=== PATIENT | male | born 1940 | race Caucasian/White ===

== ENCOUNTER 2022-07-11 08:00 | Outpatient (CLI) | payer BC ==
[2022-07-11 18:49] LABS: BILIRUBIN,URINE NEGATIVE (NEGATIVE); GLUCOSE, URINE (UA) NEGATIVE (NEGATIVE); KETONES,URINE (UA) NEGATIVE (NEGATIVE); LEUKOCYTE ESTERASE, URINE LARGE (NEGATIVE); NITRITE,URINE POSITIVE (NEGATIVE); OCCULT BLOOD,URINE SMALL (NEGATIVE); PROTEIN,URINE TRACE mg/dL (NEGATIVE); UROBILINOGEN,URINE 0.2 (NORMAL) E.U./dL (NORMAL)
[2022-07-11 18:52] LABS: CLARITY,URINE CLOUDY (CLEAR)
[2022-07-11 18:56] LABS: BACTERIA,URINE Few /HPF (None Seen); SQUAMOUS EPITHELIAL CELL,UR NONE SEEN (<= Few); WBC,URINE >25 /HPF (0-3)
== END 2022-07-11 08:01 | disposition home or self-care (01) ==
LOC: LAB.N 08:00
PROVIDERS: ATTEND Physician Assistant
DX: R35.0 Frequency of micturition (principal); R30.0 Dysuria
CPT/HCPCS: 81001; 87086

== ENCOUNTER 2023-07-24 21:55 | Outpatient (CLI) | payer BC, MEDICARE | END 2023-07-24 23:59 | disposition critical access hospital (66) | LOC: EMS 21:55 | DX: M25.522 Pain in left elbow (principal); W18.30XA Fall on same level, unspecified, initial encounter; Y93.01 Activity, walking, marching and hiking; Y92.039 Unspecified place in apartment as the place of occurrence of the external cause | CPT/HCPCS: A0425; A0429 ==

== ENCOUNTER 2023-07-24 22:02 | Emergency (ER) | payer BC, MEDICARE ==
[2023-07-24 22:18] VITALS: O2SAT 96
--- NOTE | 2023-07-24 22:18 | ED Physician Documentation ---
History of Present Illness - Stated complaint Stated Complaint: GLF - History obtained from History obtained from: Patient - Additonal information Additional information: 83yM with pmh htn, hld, p/w episode of lightheadedness tonight when he got up from his recliner to go to bed. patient was walking along in the wallway then fell, hitting his left elbow. denies HT or LOC. patient states he had two martinis tonight. denies MJ or other drug use. denies cp , n/v/d vision changes adams, fever fnd. Review of Systems Constitutional: denies: Fever, Chills Eyes: denies: Loss of vision Nose: denies: Rhinorrhea / runny nose Throat: denies: Sore throat Cardiac: denies: Chest pain / pressure, Palpitations Respiratory: denies: Dyspnea, Cough GI: denies: Abdominal Pain, Nausea, Vomiting, Diarrhea Musculoskeletal: denies: Back pain Neurologic: reports: Other (lightheadedness). denies: Syncope, Confused, Headache, Head injury, LOC PD PAST MEDICAL HISTORY - Allergies Allergies/Adverse Reactions: Allergies Allergy/AdvReac Type Severity Reaction Status Date / Time codeine Allergy Dizziness Verified 07/24/23 22:13 PD ED PE NORMAL - Vitals Vital signs reviewed: Yes - General General: Alert and oriented X 3, No acute distress, Well developed/nourished - HEENT HEENT: Atraumatic, PERRL, EOMI, Moist mucous membranes, Pharynx benign - Neck Neck: Supple, no meningeal sign - Cardiac Cardiac: RRR - Respiratory Respiratory: No respiratory distress, Clear bilaterally - Abdomen Abdomen: Non tender, Non distended - Back Back: No CVA TTP - Derm Derm: Normal color, Warm and dry - Neuro Neuro: Alert and oriented X 3, 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, No motor deficit, No sensory deficit, Normal speech Eye Opening: Spontaneous Motor: Obeys Commands Verbal: Oriented GCS Score: 15 - Psych Psych: Normal mood, Normal affect Results - Vitals Vitals: Vital Signs - 24 hr 07/24/23 07/24/23 22:10 22:25 Temperature 36.8 C Heart Rate 78 Heart Rate [ 75 Sitting] Heart Rate [ 79 Standing] Heart Rate [ 75 Supine] Respiratory 16 Rate Blood Pressure 107/64 Blood Pressure 109/67 [Sitting] Blood Pressure 102/62 [Standing] Blood Pressure 107/64 [Supine] O2 Saturation 96 Oxygen O2 Source Room air - EKG (time done) 7 EKG releavant findings:: EKG personally interpreted by author of this note. Relevant findings are: Rate: Rate (enter#) (81) Rhythm: Other (accelerated junctional rhythm) [place]: Normal Intervals: Normal [place], Other (QT/QTc 484/563) QRS: Normal Ischemia: Normal ST segments - Labs Labs: Laboratory Tests 07/24/23 07/24/23 07/24/23 22:35 22:35 22:35 WBC 5.0 RBC 3.37 L Hgb 12.5 L Hct 37.6 L MCV 111.6 H MCH 37.1 H MCHC 33.2 RDW 13.5 Plt Count 180 MPV 11.2 Manual Slide Review Indicated Sodium 136 Potassium 3.2 L Chloride 96 L Carbon Dioxide 25 Anion Gap 15.0 H BUN 31 H Creatinine 1.8 H Estimated GFR (MDRD) 36 L Glucose 143 H Calcium 10.1 Total Bilirubin 0.3 AST 15 ALT 14 Alkaline Phosphatase 49 Troponin I High Sens 8.1 Total Protein 7.4 Albumin 4.1 Globulin 3.3 Albumin/Globulin Ratio 1.2 Lipase 66 Ethyl Alcohol 127.8 PD Medical Decision Making - ED course ED course: 83yM presents to the ED s/p dizzy episode causing him to stagger to the ground, hitting L elbow. appears to have no injury to elbow. EKG shows junctional rhythm at normal rate of 81. Labwork including cbc, abdominal panel, etoh was ordered. CXR noncontributory. Orthostatic vital signs within normal limits. Cardiac monitoring in the ED uncovered no additional arrhythmia. Labwork showed mild hypokalemia with potassium 3.2 which was orally repleted. cre 1.8 without prior comparison. d/w patient who will f/u with pcp. 500cc ivf provided. Plan to f/u outpatient with patient's pcp. He may benefit from holter monitoring and/or echocardiogram as an outpatient. return precautions given. Departure - Departure Clinical Impression: Dizziness, Hypokalemia, DOMINIQUE (acute kidney injury) Condition: Stable Comments: You were seen in the emergency department for dizziness. You have some kidney injury on labwork (creatinine 1.8) and should follow up with your primary care provider for recheck. Your potassium was on the low end of normal as well and a supplement was provided. Please follow-up with your primary care provider for evaluation for need for echocardiogram and/or holter monitoring, and return to the emergency department if you have any new or worsening symptoms or other concerns.
[2023-07-24 22:47] LABS: BASOPHILS % (AUTO) 0.8 %; EOSINOPHILS # (AUTO) 0.2 10^3/uL (0.0-0.7); EOSINOPHILS % (AUTO) 4.4 %; HCT - HEMATOCRIT 37.6 % (42.0-52.0); HGB - HEMOGLOBIN 12.5 g/dL (14.0-18.0); LYMPHOCYTES # (AUTO) 1.4 10^3/uL (1.5-3.5); LYMPHOCYTES % (AUTO) 28.1 %; MEAN CORPUSCULAR HEMOGLOBIN 37.1 pg (27.0-31.0); MEAN CORPUSCULAR HGB CONC 33.2 g/dL (32.0-36.0); MEAN CORPUSCULAR VOLUME 111.6 fL (80.0-94.0); MEAN PLATELET VOLUME 11.2 fL (7.4-11.4); MONOCYTES # (AUTO) 0.8 10^3/uL (0.0-1.0); MONOCYTES % (AUTO) 15.2 %; NEUTROPHILS # (AUTO) 2.5 10^3/uL (1.5-6.6); NEUTROPHILS % (AUTO) 50.5 %; PLT - PLATELET COUNT 180 10^3/uL (130-450); RED BLOOD COUNT 3.37 10^6/uL (4.70-6.10); RED CELL DISTRIBUTION WIDTH 13.5 % (12.0-15.0)
[2023-07-24 23:07] LABS: SLIDE REVIEW? Indicated
[2023-07-24 23:12] LABS: ALBUMIN 4.1 g/dL (3.2-5.5); ALBUMIN/GLOBULIN RATIO 1.2 (1.0-2.2); BILIRUBIN,TOTAL 0.3 mg/dL (0.2-1.0); CALCIUM 10.1 mg/dL (8.5-10.3); CREATININE 1.8 mg/dL (0.6-1.3); POTASSIUM 3.2 mmol/L (3.5-4.5); TOTAL PROTEIN 7.4 g/dL (6.4-8.9)
--- NOTE | 2023-07-24 23:13 | XRAY Report ---
PROCEDURE: Chest 1V INDICATIONS: Chest Pain TECHNIQUE: One view of the chest was acquired. COMPARISON: None. FINDINGS: Surgical changes and devices: None. Lungs and pleura: No pleural effusions or pneumothorax. Lungs are clear. Mediastinum: Mediastinal contours appear normal. Heart size is normal. Bones and chest wall: No suspicious bony lesions. Overlying soft tissues appear unremarkable. IMPRESSION: No acute cardiopulmonary process. Reviewed by: Diane Castellano MD on 07/24/2023 11:12 PM PST Approved by: Diane Castellano MD on 07/24/2023 11:12 PM PST Station ID: [id number]
[2023-07-24] MEDS ORDERED: POTASSIUM CHLORIDE 20 MEQ/15 ML UDC PO STA (23:15)
[2023-07-24 23:16] LABS: TROPONIN I HIGH SENSITIVITY 8.1 ng/L (2.3-19.7)
[2023-07-24] MEDS ORDERED: SODIUM CHLORIDE 0.9% 500 ML IV STA (23:16)
[2023-07-24 23:34] LABS: PLATELET ESTIMATE, MANUAL NORMAL (130-450,000) (NORMAL)
[2023-07-25 01:09] VITALS: BP 111/72
== END 2023-07-25 00:49 | disposition home or self-care (01) ==
LOC: EDUNIT# → ED 22:02
DX: R42 Dizziness and giddiness (principal); N17.9 Acute kidney failure, unspecified; E87.6 Hypokalemia
CPT/HCPCS: 36415; 71045; 80053; 80320; 83690; 84484; 85025; 93005; 99284; A9270

== ENCOUNTER 2023-08-02 12:10 | Outpatient (CLI) | payer BC, MEDICARE ==
[2023-08-02 12:24] LABS: BASOPHILS # (AUTO) 0.1 10^3/uL (0.0-0.1); BASOPHILS % (AUTO) 1.3 %; EOSINOPHILS # (AUTO) 0.2 10^3/uL (0.0-0.7); EOSINOPHILS % (AUTO) 3.1 %; HCT - HEMATOCRIT 41.2 % (42.0-52.0); HGB - HEMOGLOBIN 13.3 g/dL (14.0-18.0); LYMPHOCYTES # (AUTO) 1.3 10^3/uL (1.5-3.5); LYMPHOCYTES % (AUTO) 23.8 %; MEAN CORPUSCULAR HEMOGLOBIN 36.3 pg (27.0-31.0); MEAN CORPUSCULAR HGB CONC 32.3 g/dL (32.0-36.0); MEAN CORPUSCULAR VOLUME 112.6 fL (80.0-94.0); MEAN PLATELET VOLUME 10.8 fL (7.4-11.4); MONOCYTES # (AUTO) 1.1 10^3/uL (0.0-1.0); MONOCYTES % (AUTO) 20.7 %; NEUTROPHILS # (AUTO) 2.8 10^3/uL (1.5-6.6); NEUTROPHILS % (AUTO) 50.2 %; PLT - PLATELET COUNT 182 10^3/uL (130-450); RED BLOOD COUNT 3.66 10^6/uL (4.70-6.10); RED CELL DISTRIBUTION WIDTH 13.8 % (12.0-15.0); WHITE BLOOD COUNT 5.5 x10^3/uL (4.8-10.8)
[2023-08-02 12:29] LABS: SLIDE REVIEW? Indicated
[2023-08-02 12:52] LABS: CALCIUM 9.3 mg/dL (8.5-10.3); CREATININE 1.6 mg/dL (0.6-1.3); POTASSIUM 4.9 mmol/L (3.5-4.5)
[2023-08-02 12:54] LABS: PLATELET ESTIMATE, MANUAL NORMAL (130-450,000) (NORMAL); PLATELET MORPHOLOGY NORMAL APPEARANCE (NORMAL); RBC MORPHOLOGY (MULTIPLE) 2+ MACROCYTOSIS (NORMAL)
[2023-08-02 14:19] LABS: FERRITIN 226.7 ng/mL (23.9-336.2)
== END 2023-08-02 12:11 | disposition home or self-care (01) ==
LOC: LAB 12:10
PROVIDERS: ATTEND Internal Medicine
DX: I10 Essential (primary) hypertension (principal); R63.0 Anorexia; R07.9 Chest pain, unspecified; R29.6 Repeated falls; K21.9 Gastro-esophageal reflux disease without esophagitis; M10.9 Gout, unspecified; Z86.010 Personal history of colon polyps; E78.5 Hyperlipidemia, unspecified; D53.9 Nutritional anemia, unspecified; E87.6 Hypokalemia
CPT/HCPCS: 36415; 80048; 82550; 82607; 82728; 82746; 83540; 84466; 85025

== ENCOUNTER 2023-11-12 13:59 | Outpatient (CLI) | payer BC | END 2023-11-12 14:00 | disposition critical access hospital (66) | LOC: EMS 13:59 | DX: R42 Dizziness and giddiness (principal); R11.2 Nausea with vomiting, unspecified | CPT/HCPCS: A0425; A0427 ==

== ENCOUNTER 2023-11-12 14:35 | Emergency (ER) | payer BC ==
[2023-11-12 14:51] VITALS: BP 155/82; O2SAT 97
--- NOTE | 2023-11-12 15:29 | ED Physician Documentation ---
History of Present Illness - Stated complaint Stated Complaint: DIZZY - Chief complaint Chief Complaint: General - History obtained from History obtained from: Patient - History of Present Illness Timing: Today Pain level max: 0 Pain level now: 0 - Additonal information Additional information: Patient is an 83-year-old male who presents to the emergency department stating that he has had intermittent dizzy spells for several months. He states that today he felt like the room was spinning around him and he became nauseated. He was having difficulty standing because every time he moved his head quickly the room would spin again. No falls. No head injury. No loss of consciousness. Not on blood thinners. He states that he had a CABG about 3 months ago. No chest pain. No shortness of breath. No seizure activity. No syncope. Review of Systems Constitutional: denies: Fever, Chills Respiratory: denies: Dyspnea, Cough, Wheezing GI: denies: Vomiting, Diarrhea Skin: denies: Rash Musculoskeletal: denies: Neck pain, Back pain Neurologic: denies: Headache PD PAST MEDICAL HISTORY - Past Medical History Cardiovascular: Hypertension, High cholesterol Respiratory: None Neuro: None Endocrine/Autoimmune: None GI: None : None Psych: None Musculoskeletal: Gout Derm: None - Past Surgical History Past Surgical History: Yes Cardiovascular: Other - Present Medications Home Medications: Ambulatory Orders Medication Instructions Recorded Confirmed Meclizine HCl 25 mg PO Q6H PRN #30 tab 11/12/23 Ondansetron Odt [Zofran] 4 mg TL Q6H PRN #10 tablet 11/12/23 - Allergies Allergies/Adverse Reactions: Allergies Allergy/AdvReac Type Severity Reaction Status Date / Time codeine Allergy Dizziness Verified 11/12/23 14:45 - Social History Does the pt smoke?: No Smoking Status: Never smoker Does the pt drink ETOH?: No Does the pt have substance abuse?: No - Immunizations Immunizations are current?: Yes PD ED PE NORMAL - Vitals Vital signs reviewed: Yes - General General: Alert and oriented X 3, No acute distress - HEENT HEENT: PERRL, EOMI, Ears normal, Moist mucous membranes, Pharynx benign - Neck Neck: Supple, no meningeal sign, No JVD, No bruit - Cardiac Cardiac: RRR, Strong equal pulses - Respiratory Respiratory: No respiratory distress, Clear bilaterally - Abdomen Abdomen: Soft, Non tender, Non distended - Back Back: No spinal TTP - Derm Derm: Warm and dry - Extremities Extremities: No edema, No calf tenderness / cord - Neuro Neuro: Alert and oriented X 3, 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 Otherwise normal cerebellar testing including [id number] and [id number].) Eye Opening: Spontaneous Motor: Obeys Commands Verbal: Oriented GCS Score: 15 - Psych Psych: Normal mood, Normal affect Results - Vitals Vitals: Vital Signs - 24 hr 11/12/23 14:40 Temperature 36 C L Heart Rate 68 Respiratory 17 Rate Blood Pressure 155/82 H O2 Saturation 97 Oxygen O2 Source Room air - Labs Labs: Laboratory Tests 11/12/23 11/12/23 15:32 15:32 WBC 8.1 RBC 3.55 L Hgb 12.0 L Hct 37.4 L MCV 105.4 H MCH 33.8 H MCHC 32.1 RDW 15.4 H Plt Count 170 MPV 11.4 Neut # (Auto) 6.6 Lymph # (Auto) 0.6 L [place] # (Auto) 0.7 Eos # (Auto) 0.1 Baso # (Auto) 0.0 Absolute Nucleated RBC 0.00 Nucleated RBC % 0.0 Sodium 137 Potassium 4.3 Chloride 103 Carbon Dioxide 27 Anion Gap 7.0 BUN 14 Creatinine 1.0 Estimated GFR (MDRD) 71 L Glucose 110 H Calcium 10.1 Total Bilirubin 0.4 AST 12 ALT 11 Alkaline Phosphatase 87 Troponin I High Sens 7.9 Total Protein 7.3 Albumin 3.7 Globulin 3.6 Albumin/Globulin Ratio 1.0 Lipase 42 - Rads (name of study) Head CT Relevant Findings:: Final report received, See rad report cxr Relevant Findings:: Final report received, See rad report PD Medical Decision Making - ED course Complexity details: reviewed results, re-evaluated patient, considered differential, d/w patient ED course: 83-year-old male with what appears to be BPPV. He was given a dose of droperidol and symptoms fully resolved in the emergency department. His head CT does not show any acute abnormalities. Troponin is negative. Chest x-ray does not show any acute abnormalities. No chest pain. No arrhythmias on telemetry. Sinus rhythm on the monitor. Patient is ambulating without difficulty. Normal cerebellar testing after droperidol. No further nystagmus. Will prescribe meclizine for home and have him follow-up with his PCP. 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 Patient counseled regarding signs and symptoms for which I believe and urgent re-evaluation would be necessary. Patient with good understanding of and agreement to plan and is comfortable going home at this time This document was made in part using voice recognition software. While efforts are made to proofread this document, sound alike and grammatical errors may occur. Departure - Departure Disposition: Home, Self Care Clinical Impression: Vertigo Condition: Good Instructions: ED Vertigo Unspecified Follow-Up: Bobbi Dixon MD [Primary Care Provider] - Prescriptions: Meclizine HCl 25 mg PO Q6H PRN #30 tab PRN Reason: Dizziness Ondansetron Odt [Zofran] 4 mg TL Q6H PRN #10 tablet PRN Reason: Nausea / Vomiting Comments: Your prescription was sent to the [facility] pharmacy. Use the meclizine as needed for dizziness and the Zofran as needed for nausea or vomiting. This usually improves within 1 to 2 days. Please return if you worsen. Forms: PCP List Discharge Date/Time: 11/12/23 16:39
[2023-11-12 15:39] LABS: BASOPHILS % (AUTO) 0.5 %; EOSINOPHILS # (AUTO) 0.1 10^3/uL (0.0-0.7); EOSINOPHILS % (AUTO) 1.6 %; HCT - HEMATOCRIT 37.4 % (42.0-52.0); LYMPHOCYTES # (AUTO) 0.6 10^3/uL (1.5-3.5); LYMPHOCYTES % (AUTO) 7.9 %; MEAN CORPUSCULAR HEMOGLOBIN 33.8 pg (27.0-31.0); MEAN CORPUSCULAR HGB CONC 32.1 g/dL (32.0-36.0); MEAN CORPUSCULAR VOLUME 105.4 fL (80.0-94.0); MEAN PLATELET VOLUME 11.4 fL (7.4-11.4); MONOCYTES # (AUTO) 0.7 10^3/uL (0.0-1.0); MONOCYTES % (AUTO) 8.8 %; NEUTROPHILS # (AUTO) 6.6 10^3/uL (1.5-6.6); NEUTROPHILS % (AUTO) 81.1 %; PLT - PLATELET COUNT 170 10^3/uL (130-450); RED BLOOD COUNT 3.55 10^6/uL (4.70-6.10); RED CELL DISTRIBUTION WIDTH 15.4 % (12.0-15.0); WHITE BLOOD COUNT 8.1 x10^3/uL (4.8-10.8)
[2023-11-12] MEDS: DROPERIDOL 5 MG/2 ML VIAL IVP STA (15:48)
--- NOTE | 2023-11-12 15:49 | XRAY Report ---
PROCEDURE: Chest 1V INDICATIONS: Chest Pain TECHNIQUE: One view of the chest was acquired. COMPARISON: Chest radiographs 07/24/2023. FINDINGS: Surgical changes and devices: Sternotomy wires and mediastinal clips are present. Lungs and pleura: Mild elevation of the right hemidiaphragm is unchanged. Lungs are clear. No pleura l effusion or pneumothorax. Mediastinum: Mediastinal contours appear normal. Heart size is normal. Bones and chest wall: No suspicious bony lesions. Overlying soft tissues appear unremarkable. IMPRESSION: No acute cardiopulmonary process. Reviewed by: Orestes Kirk MD on 11/12/2023 3:48 PM PDT Approved by: Orestes Kirk MD on 11/12/2023 3:48 PM PDT Station ID: [id number]
--- NOTE | 2023-11-12 15:52 | CT Report ---
PROCEDURE: Head WO INDICATIONS: dizzy, vomiting TECHNIQUE: Noncontrast 4.5 mm thick angled axial sections acquired from the foramen magnum to the vertex. For r adiation dose reduction, the following was used: automated exposure control, adjustment of mA and/or kV according to patient size. COMPARISON: None. FINDINGS: Image quality: Excellent. CSF spaces: Basal cisterns are patent. No extra-axial fluid collections. Ventricles are symmetric in size and shape. Brain: No midline shift. No intracranial masses or hemorrhage. Hypodensities in the subcortical and periventricular white matter are most commonly seen in setting of chronic microvascular ischemic jj nges. Age-related cerebral and cerebellar volume loss is seen. Intracranial vascular calcifications a re noted in the internal carotid arteries. Extensive basilar vertebral artery atherosclerotic calcifi cations are present. Skull and face: Calvarium and visualized facial bones are intact, without suspicious lesions. Sinuses: Mucosal thickening or trace air-fluid level in the posterior left maxillary sinus. The remai radha visualized paranasal sinuses and the mastoid air cells are clear. IMPRESSION: 1.No acute intracranial pathology. 2.Mild chronic microvascular ischemic changes and generalized parenchymal volume loss. 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 Reviewed by: Orestes Kirk MD on 11/12/2023 3:51 PM PDT Approved by: Orestes Kirk MD on 11/12/2023 3:51 PM PDT Station ID: [id number]
[2023-11-12 16:01] LABS: ALBUMIN 3.7 g/dL (3.2-5.5); BILIRUBIN,TOTAL 0.4 mg/dL (0.2-1.0); CALCIUM 10.1 mg/dL (8.5-10.3); POTASSIUM 4.3 mmol/L (3.5-4.5); TOTAL PROTEIN 7.3 g/dL (6.4-8.9)
[2023-11-12 16:04] LABS: TROPONIN I HIGH SENSITIVITY 7.9 ng/L (2.3-19.7)
== END 2023-11-12 16:39 | disposition home or self-care (01) ==
LOC: EDBD → EDUNIT# → ED 14:35
DX: R42 Dizziness and giddiness (principal); I25.10 Atherosclerotic heart disease of native coronary artery without angina pectoris; Z95.1 Presence of aortocoronary bypass graft; I10 Essential (primary) hypertension; E78.00 Pure hypercholesterolemia, unspecified; M10.9 Gout, unspecified
CPT/HCPCS: 36415; 80053; 83690; 84484; 85025; 96374; 99283

== ENCOUNTER 2023-11-14 11:33 | Emergency (ER) | payer BC ==
--- NOTE | 2023-11-14 13:16 | ED Physician Documentation ---
PD [facility] HEENT - Stated complaint Stated Complaint: DIZZY - Chief complaint Chief Complaint: Neuro - History obtained from History obtained from: Patient - History of Present Illness Timing - onset: How many days ago (2-3) Timing - duration: Days (2-3) Timing - details: Intermittant Location: Other (he has noted positional vertigo with standing up, turning head and when ly8ng flat.) Recently seen: Emergency Dept (2 days ago with labs and head CT that were okay. Has still intermittent vertigo and noting some visual blurring at times too. Feeling off balance with the vertigo. Awoke in night with visual disturbance.), Surgery (CABG 2 years ago at [facility].) Review of Systems Constitutional: denies: Fever, Chills Eyes: denies: Loss of vision, Decreased vision Ears: denies: Loss of hearing, Ear pain Nose: denies: Rhinorrhea / runny nose, Congestion Throat: denies: Sore throat Cardiac: denies: Chest pain / pressure, Palpitations, Pedal edema, Calf pain Respiratory: denies: Cough PD PAST MEDICAL HISTORY - Past Medical History Past Medical History: Yes Cardiovascular: Hypertension, High cholesterol Respiratory: None Neuro: None Endocrine/Autoimmune: None GI: None : None Psych: None Musculoskeletal: Gout Derm: None - Past Surgical History Past Surgical History: Yes Cardiovascular: CABG, Other - Present Medications Home Medications: Ambulatory Orders Medication Instructions Recorded Confirmed Meclizine HCl 25 mg PO Q6H PRN #30 tab 11/12/23 11/14/23 Ondansetron Odt [Zofran] 4 mg TL Q6H PRN #10 tablet 11/12/23 11/14/23 Aspirin [[place] Aspirin] 81 mg PO DAILY 11/14/23 11/14/23 Atorvastatin Calcium 40 mg PO DAILY 11/14/23 11/14/23 Metoprolol Succinate [Toprol Xl] 12.5 mg PO DAILY 11/14/23 11/14/23 Ticagrelor [Brilinta] 90 mg PO DAILY 11/14/23 11/14/23 allopurinoL [Zyloprim] 100 mg PO DAILY 11/14/23 11/14/23 - Allergies Allergies/Adverse Reactions: Allergies Allergy/AdvReac Type Severity Reaction Status Date / Time codeine Allergy Dizziness Verified 11/14/23 11:42 - Social History Does the pt smoke?: No Smoking Status: Never smoker Does the pt drink ETOH?: No Does the pt have substance abuse?: No - Immunizations Immunizations are current?: Yes PD ED PE NORMAL - Vitals Vital signs reviewed: Yes - General General: Alert and oriented X 3, No acute distress, Well developed/nourished - HEENT HEENT: PERRL, EOMI - Neck Neck: Supple, no meningeal sign, No adenopathy - Cardiac Cardiac: RRR, No murmur - Respiratory Respiratory: Clear bilaterally - Abdomen Abdomen: Soft, Non tender - Derm Derm: Normal color, Warm and dry - Extremities Extremities: No edema, No calf tenderness / cord - Neuro Neuro: Alert and oriented X 3, No motor deficit Results - Vitals Vitals: Vital Signs - 24 hr 11/14/23 11/14/23 11/14/23 11:42 13:50 17:00 Temperature 36.8 C Heart Rate 100 72 77 Respiratory 16 14 18 Rate Blood Pressure 119/76 162/94 H O2 Saturation 98 98 99 Oxygen O2 Source Room air - Labs Labs: Laboratory Tests 11/14/23 13:47 Sodium 137 Potassium 4.8 H Chloride 105 Carbon Dioxide 28 Anion Gap 4.0 L BUN 14 Creatinine 1.0 Estimated GFR (MDRD) 71 L Glucose 107 H Calcium 9.9 Phosphorus 3.1 Magnesium 1.9 Total Bilirubin 0.4 AST 12 ALT 11 Alkaline Phosphatase 88 C-Reactive Protein 0.6 Total Protein 7.3 Albumin 3.7 Globulin 3.6 Albumin/Globulin Ratio 1.0 Lipase 37 Vitamin B12 221 PD Medical Decision Making - ED course Complexity details: considered differential, d/w patient ED course: The patient had what sounds like positional vertigo. He is continued with that but also dizzy at times with minimal movement and noted awakening during the night with some visual hallucinations thinking he saw some people in the room. This was after taking the meclizine. Still with dizziness today but also concerned about the visual disturbance. No loss of vision or focal deficits. Given the combination of symptoms, I would be concern for posterior circulation process. Certainly his feeling of off balance and visual disturbance could be the meclizine antihistamine effect. He does not take any other serotonin type medicines to suggest serotonin syndrome. I am ordering a brain MRI to evaluate. He had had basic chemistry panel done before but can add an other blood test today of magnesium and phosphorus etc. He does describe positional vertigo initially. The description of yesterday/today seems to have a visual change component and also some randomness not associated with position change. He still describes a distinct room spinning vertigo with movement too though. Feels off balance. No headache. no near syncope. While awaiting MRI, just before change of shift, nursing points out pt had a several second pause in heart rhythm. Brief talk with him was some lightheaded but not vertigo. This will need continued monitoring while awaiting MRI report of brain, emphasis on posterior/cerebellar area. Pt had been given Meclizine and Zofran for symptoms from 2 days ago visit. Eopcrates does note Zofran can cause bradycardia/block, and pt already on beta kristen. Care to Dr. Taveras. Departure - Departure Disposition: 02 Transfer Acute Care Hosp Clinical Impression: Dizziness, Sinus pause Condition: Serious Record reviewed to determine appropriate education?: Yes Forms: PCP List Discharge Date/Time: 11/14/23 18:40
[2023-11-14] MEDS: diazePAM 5 MG TABLET PO STA (14:02)
[2023-11-14] MEDS: dexAMETHasone 4 MG TABLET PO STA (14:02)
[2023-11-14 14:08] LABS: ALBUMIN 3.7 g/dL (3.2-5.5); BILIRUBIN,TOTAL 0.4 mg/dL (0.2-1.0); CALCIUM 9.9 mg/dL (8.5-10.3); CRP - C-REACTIVE PROTEIN 0.6 mg/dL (<0.5); MAGNESIUM 1.9 mg/dL (1.7-2.3); PHOSPHORUS 3.1 mg/dL (2.5-5.0); POTASSIUM 4.8 mmol/L (3.5-4.5); TOTAL PROTEIN 7.3 g/dL (6.4-8.9)
--- NOTE | 2023-11-14 16:00 | ED Physician Documentation ---
ED Addendum - Addendum Addendum: 11/14/23 15:[address] Gallego at 3 PM shift change. Briefly this is a gentleman who by history for both Dr. Julián Goncalves was here with likely peripheral vertigo and the plan at signout was for me to follow-up on a brain MRI. Right at signout he had an 8-second pause on the monitor. During this time he had P waves but no conducted QRS complexes. He did become symptomatic with this and says that the symptoms are reminiscent of what brought him in today questioning the historical description of vertigo. We performed an EKG Twelve-lead EKG done at 1552 hrs. discloses normal sinus rhythm with a prolonged LA interval. No ST elevation or depression. No long QT. No ectopy on this EKG. I have looked briefly at his MRI, the formal read is pending but looks like he probably has some age-related disease but I do not see have any evidence of stroke or mass. We are awaiting the final read. He tells me that his bypass was done at [facility] about a month and a half ago. He is on metoprolol. We are calling [facility] at this time to consult with his vacuum worker given the long pause. 11/14/23 16:19 at 1612 he again had a pause, this time 13 seconds and again symptomatic and he confirmed that these were the symptoms that brought him in today. He was not fully syncopal with this. We have ascertained that although his surgery was done at [facility], his initial coronary workup was probably done at [facility] and I will call them for consultation. 11/14/23 16:23 At this time I spoke with Dr. Harvey, Metal Base Blocker at [facility] who recommends discontinuing to metoprolol for now and transferring to the hospitalist there for admission. He confirms that Dr. Maya, their EP is in town. We have placed pacer pads. 11/14/23 16:25 My health unit operator though tells me there are no beds available at [facility] so I asked her to start a search for any facility capable of doing PPM in this gentleman. 11/14/23 16:39 MRI Brain read: IMPRESSION: No findings of acute or subacute infarction are seen. Age-appropriate brain parenchymal volume loss and chronic small vessel ischemic change can be seen. 11/14/23 16:52 At this time I discussed the case with Dr. Hawley, vacuum worker at [facility]. She agrees with transfer down. She would like me to start glucagon bolus and drip. I did offer to place a temporary pacemaker which she felt was not indicated at this time. She defers to the decorative greens cutter for admission. 11/14/23 17:01 Accepted at this time by Dr. Steel to the [facility] ICU. Critical care time 45 minutes in direct patient care, review of labs and diagnostics exclusive of EKG read. Disposition: Transferred to [facility] for cardiac care Condition: Serious to critical Diagnosis: 1. Dizziness 2. Complete heart block 11/14/23 18:00 RN notified me that he has had 2 more long pauses up to 13 seconds again. [facility] at this time just confirmed bed availability in their ICU. He is going via [facility].
--- NOTE | 2023-11-14 16:33 | MRI Report ---
PROCEDURE: Brain WO INDICATIONS: vertigo and visual disturbance few days TECHNIQUE: Noncontrast axial T1 spin echo, axial T2 fast spin echo, sagittal and axial FLAIR, coronal T2 fast sp in echo, axial gradient echo, axial diffusion and ADC through the brain. COMPARISON: Correlation is made with head CT, 11/12/2023. FINDINGS: Image quality: Excellent. CSF Spaces: Basal cisterns are patent. No extra-axial fluid collections. Ventricles are normal in size and shape. Brain: No intracranial masses or hemorrhage. [place]/white matter interface is normal. Brainstem appe ars normal. Diffusion-weighted images demonstrate no acute ischemic insult. No chronic ischemic ins ults. Normal intravascular flow voids are present. Age-appropriate brain parenchymal volume loss an d chronic small vessel ischemic change can be seen. Symmetric calcification of the basal ganglia can be seen, which is considered to be within normal limits for age. Skull and face: Calvarium has normal marrow signal. Orbits appear normal. Incidental note is made of bilateral lens replacements. Sinuses: Sinuses and mastoids are clear. IMPRESSION: No findings of acute or subacute infarction are seen. Age-appropriate brain parenchymal volume loss and chronic small vessel ischemic change can be seen. Reviewed by: Aidan Sanchez MD on 11/14/2023 3:32 PM SUZIE Approved by: Aidan Sanchez MD on 11/14/2023 3:32 PM SUZIE Station ID: [id number]
[2023-11-14] MEDS ORDERED: GLUCAGON 5 MG in DEXTROSE 5% 45 ML IV STA (16:58)
[2023-11-14 17:09] VITALS: BP 162/94; O2SAT 99
[2023-11-14] MEDS: GLUCAGON 1 MG/ML VIAL IVP STA (17:22)
[2023-11-14] MEDS: GLUCAGON IV STA (17:34)
[2023-11-14] MEDS: DEXTROSE 5% IV STA (17:34)
== END 2023-11-14 18:40 | disposition short-term general hospital (02) ==
LOC: ED 11:33
DX: I44.2 Atrioventricular block, complete (principal); R42 Dizziness and giddiness; I10 Essential (primary) hypertension; E78.00 Pure hypercholesterolemia, unspecified; Z79.82 Long term (current) use of aspirin; Z79.899 Other long term (current) drug therapy; Z95.1 Presence of aortocoronary bypass graft
CPT/HCPCS: 36415; 70551; 80053; 82607; 83690; 83735; 84100; 86140; 93005; 96374; 99285; A9270; J1610; J8540